=== PATIENT | male | born 1930 | race Caucasian/White ===

== ENCOUNTER 2018-01-15 06:06 | Inpatient (IN) | payer MEDICARE, OTHER ==
[~2018-01-15] VITALS: Ht 182.9 cm; Wt 71.2 kg
[~2018-01-15 06:06] MED LIST: CIPR500 PO; HYDACE5 PO; IRON150C PO; LEVFLO250 PO; OMEP20ER PO; Omeprazole20 M1 PO; Prilosec Otc20 MG PO; Pyridium200 MG PO; SINEMET 25-1001 EACH PO; TAMS.4ER PO; Ultram50 MG PO; Zofran Odt4 MG SL; [UNRECOGNIZED DRUG - OTHER] PO; [UNRECOGNIZED DRUG - REMARK]
[2018-01-15] MEDS ORDERED: METO25ER PO (06:36)
[2018-01-15] MEDS ORDERED: LOSA25 PO (06:37)
[2018-01-15 21:32] LABS: BASOPHILS ABSOLUTE AUTO 0.02 K/mm3 (0.00-0.23); BASOPHILS PERCENT AUTO 0 % (0-2); EOSINOPHILS PERCENT AUTO 0 % (0-6); Hematocrit 31.7 % (37.0-53.0); Hemoglobin 9.6 g/dL (13.5-17.5); IMMATURE GRAN ABSOLUTE AUTO 0.04 K/mm3 (0.00-0.10); IMMATURE GRAN PERCENT AUTO 0 % (0-1); LYMPHOCYTES ABSOLUTE AUTO 0.59 K/mm3 (0.84-5.20); LYMPHOCYTES PERCENT AUTO 5 % (21-46); MONOCYTES ABSOLUTE AUTO 0.78 K/mm3 (0.16-1.47); MONOCYTES PERCENT AUTO 7 % (4-13); Mean Corpuscular HGB 29.9 pg (26.0-34.0); Mean Corpuscular HGB Conc 30.3 g/dL (31.5-36.5); Mean Corpuscular Volume 99 fL (80-100); Mean Platelet Volume 9.5 fL (9.1-12.4); NEUTROPHILS PERCENT AUTO 88 % (41-73); Platelet Count 237 K/mm3 (150-400); RDW Coefficient Variation 14.6 % (11.7-14.2); RDW Standard Deviation 52.9 fL (35.1-46.3); Red Blood Cell Count 3.21 M/mm3 (4.30-5.90); White Blood Cell Count 11.83 K/mm3 (4.00-11.30)
[2018-01-16 04:32] LABS: Anion Gap 4 mmol/L (6-16); Blood Urea Nitrogen 27 mg/dL (8-24); Bun/Creatinine Ratio 25.7 (12.0-20.0); CO2, Blood 32 mmol/L (21-32); Calcium, Blood 7.6 mg/dL (8.5-10.1); Chloride, Blood 107 mmol/L (98-108); Creatinine, Blood 1.05 mg/dL (0.60-1.20); Glomerular Filtration Rate >60 (60-); Glucose, Blood 82 mg/dL (70-99); Magnesium, Blood 1.8 mg/dL (1.6-2.4); Potassium, Blood 4.9 mmol/L (3.5-5.5); Sodium, Blood 143 mmol/L (136-145)
[2018-01-16 07:15] LABS: BASOPHILS ABSOLUTE AUTO 0.05 K/mm3 (0.00-0.23); BASOPHILS PERCENT AUTO 1 % (0-2); EOSINOPHILS ABSOLUTE AUTO 0.05 K/mm3 (0.00-0.68); EOSINOPHILS PERCENT AUTO 1 % (0-6); Hemoglobin 8.7 g/dL (13.5-17.5); IMMATURE GRAN ABSOLUTE AUTO 0.03 K/mm3 (0.00-0.10); IMMATURE GRAN PERCENT AUTO 0 % (0-1); LYMPHOCYTES ABSOLUTE AUTO 0.95 K/mm3 (0.84-5.20); LYMPHOCYTES PERCENT AUTO 11 % (21-46); MONOCYTES ABSOLUTE AUTO 0.71 K/mm3 (0.16-1.47); MONOCYTES PERCENT AUTO 8 % (4-13); Mean Corpuscular HGB 29.8 pg (26.0-34.0); Mean Corpuscular Volume 99 fL (80-100); NEUTROPHILS ABSOLUTE AUTO 7.24 K/mm3 (1.96-9.15); NEUTROPHILS PERCENT AUTO 80 % (41-73); Platelet Count 222 K/mm3 (150-400); RDW Coefficient Variation 14.9 % (11.7-14.2); RDW Standard Deviation 54.2 fL (35.1-46.3); Red Blood Cell Count 2.92 M/mm3 (4.30-5.90); White Blood Cell Count 9.03 K/mm3 (4.00-11.30)
[2018-01-17 06:28] LABS: BASOPHILS ABSOLUTE AUTO 0.03 K/mm3 (0.00-0.23); BASOPHILS PERCENT AUTO 0 % (0-2); EOSINOPHILS ABSOLUTE AUTO 0.07 K/mm3 (0.00-0.68); EOSINOPHILS PERCENT AUTO 1 % (0-6); Hematocrit 28.5 % (37.0-53.0); Hemoglobin 8.6 g/dL (13.5-17.5); IMMATURE GRAN ABSOLUTE AUTO 0.04 K/mm3 (0.00-0.10); IMMATURE GRAN PERCENT AUTO 0 % (0-1); LYMPHOCYTES ABSOLUTE AUTO 0.45 K/mm3 (0.84-5.20); LYMPHOCYTES PERCENT AUTO 4 % (21-46); MONOCYTES ABSOLUTE AUTO 0.79 K/mm3 (0.16-1.47); MONOCYTES PERCENT AUTO 7 % (4-13); Mean Corpuscular HGB 29.7 pg (26.0-34.0); Mean Corpuscular HGB Conc 30.2 g/dL (31.5-36.5); Mean Corpuscular Volume 98 fL (80-100); Mean Platelet Volume 9.7 fL (9.1-12.4); NEUTROPHILS ABSOLUTE AUTO 9.65 K/mm3 (1.96-9.15); NEUTROPHILS PERCENT AUTO 87 % (41-73); Platelet Count 208 K/mm3 (150-400); RDW Coefficient Variation 14.8 % (11.7-14.2); RDW Standard Deviation 53.1 fL (35.1-46.3); White Blood Cell Count 11.03 K/mm3 (4.00-11.30)
[2018-01-17 06:52] LABS: Magnesium, Blood 1.9 mg/dL (1.6-2.4)
[2018-01-17 06:53] LABS: Anion Gap 5 mmol/L (6-16); Blood Urea Nitrogen 22 mg/dL (8-24); Bun/Creatinine Ratio 22.6 (12.0-20.0); CO2, Blood 31 mmol/L (21-32); Calcium, Blood 7.8 mg/dL (8.5-10.1); Chloride, Blood 103 mmol/L (98-108); Creatinine, Blood 0.97 mg/dL (0.60-1.20); Glomerular Filtration Rate >60 (60-); Glucose, Blood 101 mg/dL (70-99); Phosphorus, Blood 3.1 mg/dL (2.5-4.9); Potassium, Blood 4.3 mmol/L (3.5-5.5); Sodium, Blood 139 mmol/L (136-145)
[2018-01-18 05:50] LABS: BASOPHILS ABSOLUTE AUTO 0.02 K/mm3 (0.00-0.23); BASOPHILS PERCENT AUTO 0 % (0-2); EOSINOPHILS ABSOLUTE AUTO 0.04 K/mm3 (0.00-0.68); EOSINOPHILS PERCENT AUTO 0 % (0-6); Hematocrit 27.4 % (37.0-53.0); Hemoglobin 8.4 g/dL (13.5-17.5); IMMATURE GRAN ABSOLUTE AUTO 0.04 K/mm3 (0.00-0.10); IMMATURE GRAN PERCENT AUTO 0 % (0-1); LYMPHOCYTES PERCENT AUTO 4 % (21-46); MONOCYTES ABSOLUTE AUTO 0.75 K/mm3 (0.16-1.47); MONOCYTES PERCENT AUTO 8 % (4-13); Mean Corpuscular HGB 29.2 pg (26.0-34.0); Mean Corpuscular HGB Conc 30.7 g/dL (31.5-36.5); NEUTROPHILS ABSOLUTE AUTO 8.31 K/mm3 (1.96-9.15); NEUTROPHILS PERCENT AUTO 87 % (41-73); Platelet Count 222 K/mm3 (150-400); RDW Coefficient Variation 14.6 % (11.7-14.2); RDW Standard Deviation 50.5 fL (35.1-46.3); Red Blood Cell Count 2.88 M/mm3 (4.30-5.90); White Blood Cell Count 9.56 K/mm3 (4.00-11.30)
[2018-01-18 05:55] LABS: Mean Corpuscular Volume 95 fL (80-100)
[2018-01-18 06:08] LABS: Anion Gap 4 mmol/L (6-16); Blood Urea Nitrogen 16 mg/dL (8-24); Bun/Creatinine Ratio 17.1 (12.0-20.0); CO2, Blood 33 mmol/L (21-32); Calcium, Blood 7.9 mg/dL (8.5-10.1); Chloride, Blood 102 mmol/L (98-108); Creatinine, Blood 0.94 mg/dL (0.60-1.20); Glomerular Filtration Rate >60 (60-); Glucose, Blood 97 mg/dL (70-99); Magnesium, Blood 1.8 mg/dL (1.6-2.4); Phosphorus, Blood 2.9 mg/dL (2.5-4.9); Potassium, Blood 4.1 mmol/L (3.5-5.5); Sodium, Blood 139 mmol/L (136-145)
[2018-01-19 08:34] LABS: Anion Gap 6 mmol/L (6-16); Blood Urea Nitrogen 14 mg/dL (8-24); Bun/Creatinine Ratio 15.3 (12.0-20.0); CO2, Blood 33 mmol/L (21-32); Calcium, Blood 7.8 mg/dL (8.5-10.1); Chloride, Blood 103 mmol/L (98-108); Creatinine, Blood 0.92 mg/dL (0.60-1.20); Glomerular Filtration Rate >60 (60-); Glucose, Blood 100 mg/dL (70-99); Potassium, Blood 3.9 mmol/L (3.5-5.5); Sodium, Blood 142 mmol/L (136-145)
== END 2018-01-19 13:35 | disposition home health service (06) | DRG 178 ==
LOC: SURS 06:06 → PRE IP 07:30 → SURS 11:44
PROVIDERS: Surgery
PROC: 0DHA4UZ Insertion of Feeding Device into Jejunum, Percutaneous Endoscopic Approach (ICD-10-PCS; principal; 2018-01-15 07:30)
DX: J69.0 Pneumonitis due to inhalation of food and vomit (principal); E46 Unspecified protein-calorie malnutrition; I42.9 Cardiomyopathy, unspecified; I95.9 Hypotension, unspecified; Z85.01 Personal history of malignant neoplasm of esophagus; Z87.891 Personal history of nicotine dependence; Z85.46 Personal history of malignant neoplasm of prostate; Z68.21 Body mass index [BMI] 21.0-21.9, adult; I10 Essential (primary) hypertension; G20 Parkinson's disease
CPT/HCPCS: 36415; 80048; 83735; 84100; 85025; C1729; J0295; J1100; J2370; J2405; J2710; J3010; J7030; J7060; J7120

== ENCOUNTER 2018-04-05 15:37 | Emergency (ER) | payer MEDICARE, OTHER ==
[~2018-04-05] VITALS: Ht 188 cm; Wt 72.6 kg
[~2018-04-05 15:37] MED LIST changes: +LOSA25 PO; +METO25ER PO
[2018-04-05 17:25] LABS: BASOPHILS ABSOLUTE AUTO 0.07 K/mm3 (0.00-0.23); BASOPHILS PERCENT AUTO 1 % (0-2); EOSINOPHILS PERCENT AUTO 8 % (0-6); Hematocrit 40.9 % (37.0-53.0); Hemoglobin 12.6 g/dL (13.5-17.5); IMMATURE GRAN ABSOLUTE AUTO 0.02 K/mm3 (0.00-0.10); IMMATURE GRAN PERCENT AUTO 0 % (0-1); LYMPHOCYTES ABSOLUTE AUTO 0.91 K/mm3 (0.84-5.20); LYMPHOCYTES PERCENT AUTO 12 % (21-46); MONOCYTES ABSOLUTE AUTO 0.81 K/mm3 (0.16-1.47); MONOCYTES PERCENT AUTO 10 % (4-13); Mean Corpuscular HGB 30.2 pg (26.0-34.0); Mean Corpuscular HGB Conc 30.8 g/dL (31.5-36.5); Mean Corpuscular Volume 98 fL (80-100); Mean Platelet Volume 9.4 fL (9.1-12.4); NEUTROPHILS ABSOLUTE AUTO 5.41 K/mm3 (1.96-9.15); NEUTROPHILS PERCENT AUTO 69 % (41-73); Platelet Count 265 K/mm3 (150-400); RDW Coefficient Variation 13.8 % (11.7-14.2); RDW Standard Deviation 49.8 fL (35.1-46.3); Red Blood Cell Count 4.17 M/mm3 (4.30-5.90); White Blood Cell Count 7.82 K/mm3 (4.00-11.30)
[2018-04-05 17:52] LABS: Alanine Aminotransfer (ALT/SGP 21 U/L (12-78); Albumin/Globulin Ratio 0.6 (0.8-1.8); Alk Phos 124 U/L (50-136); Anion Gap 3 mmol/L (6-16); Aspartate Aminotrans (AST/SGOT 23 U/L (12-37); Bilirubin, Total 0.4 mg/dL (0.1-1.0); Blood Urea Nitrogen 36 mg/dL (8-24); Bun/Creatinine Ratio 45.6 (12.0-20.0); CO2, Blood 37 mmol/L (21-32); Calcium, Blood 8.9 mg/dL (8.5-10.1); Chloride, Blood 98 mmol/L (98-108); Creatinine, Blood 0.79 mg/dL (0.60-1.20); Globulin, Blood 4.9 g/dL (2.2-4.0); Glomerular Filtration Rate >60 (60-); Glucose, Blood 77 mg/dL (70-99); Sodium, Blood 138 mmol/L (136-145); Total Protein, Blood 7.9 g/dL (6.4-8.2)
[2018-04-05 17:54] LABS: Troponin I <0.015 ng/mL (0.000-0.040)
== END 2018-04-05 18:46 | disposition home or self-care (01) ==
LOC: ER 15:37
PROVIDERS: Physician Assistant
DX: R05 Cough (principal); G20 Parkinson's disease; Z79.899 Other long term (current) drug therapy; Z87.891 Personal history of nicotine dependence
CPT/HCPCS: 36415; 71046; 80053; 84484; 85025; 93005; 93010; 99283-25

== ENCOUNTER 2018-04-22 04:35 | Emergency (ER) | payer MEDICARE, OTHER ==
[~2018-04-22] VITALS: Ht 188 cm; Wt 72.6 kg
== END 2018-04-22 07:00 | disposition home or self-care (01) ==
LOC: ER 04:35
DX: Z43.4 Encounter for attention to other artificial openings of digestive tract (principal); G20 Parkinson's disease; C61 Malignant neoplasm of prostate
CPT/HCPCS: 43761; 49465; 99283-25; Q9963

== ENCOUNTER 2018-07-31 08:33 | Day surgery (SDC) | payer MEDICARE, OTHER ==
[~2018-07-31] VITALS: Ht 182.9 cm; Wt 76.4 kg
[~2018-07-31 08:33] MED LIST changes: +CYAN1000I IM; +ERYT1OIN BOTHEYES; +HYDCHL25 PO; +LANS15EC PO; +Norco 5-325 Ta1 EACH PO; +SINEMET 25-1001 EACH; -SINEMET 25-1001 EACH PO; +Zantac150 MG PO; +[UNRECOGNIZED DRUG - OTHER] PO
--- NOTE | 2018-07-31 10:21 | NUR ---
PT HERE FROM STUDENT COUNSELOR. PT A&OX3. SITE STABLE. PT AND FAMILY WELL EDUCATED ON SITE MANAGEMENT. IV DC'D WITH CANULA IN TACT AT 1020. PT ABLE TO DRESS SELF WITH LITTLE HELP. PT AMBULATED TO RESTROOM WITH STEADY GAIT. PT TO BE WHEELED OUT BY ESCORT.
--- NOTE | 2018-07-31 10:45 | NUR ---
PT DISCHARGED HOME VIA WHEELCHAIR. SON DRIVING.
== END 2018-07-31 10:20 | disposition home or self-care (01) ==
LOC: MHTC 08:33
DX: Z43.4 Encounter for attention to other artificial openings of digestive tract (principal); C15.9 Malignant neoplasm of esophagus, unspecified; Z87.442 Personal history of urinary calculi; Z87.891 Personal history of nicotine dependence; Z79.899 Other long term (current) drug therapy
CPT/HCPCS: 49451; C1729; C1769; J7030; Q9967

== ENCOUNTER 2018-12-31 06:37 | Inpatient (IN) | payer MEDICARE, OTHER ==
[~2018-12-31] VITALS: Ht 188 cm; Wt 79.4 kg
[2018-12-31 08:47] LABS: Source, Urine Catheter
[2018-12-31 08:54] LABS: BASOPHILS ABSOLUTE AUTO 0.03 K/mm3 (0.00-0.23); BASOPHILS PERCENT AUTO 0 % (0-2); EOSINOPHILS ABSOLUTE AUTO 0.02 K/mm3 (0.00-0.68); EOSINOPHILS PERCENT AUTO 0 % (0-6); Hematocrit 41.5 % (37.0-53.0); Hemoglobin 13.1 g/dL (13.5-17.5); IMMATURE GRAN ABSOLUTE AUTO 0.06 K/mm3 (0.00-0.10); IMMATURE GRAN PERCENT AUTO 0 % (0-1); LYMPHOCYTES PERCENT AUTO 2 % (21-46); MONOCYTES ABSOLUTE AUTO 0.69 K/mm3 (0.16-1.47); MONOCYTES PERCENT AUTO 5 % (4-13); Mean Corpuscular HGB 31.1 pg (26.0-34.0); Mean Corpuscular HGB Conc 31.6 g/dL (31.5-36.5); Mean Corpuscular Volume 99 fL (80-100); Mean Platelet Volume 9.3 fL (9.1-12.4); NEUTROPHILS ABSOLUTE AUTO 13.02 K/mm3 (1.96-9.15); NEUTROPHILS PERCENT AUTO 92 % (41-73); Platelet Count 293 K/mm3 (150-400); RDW Coefficient Variation 14.7 % (11.7-14.2); RDW Standard Deviation 53.7 fL (35.1-46.3); Red Blood Cell Count 4.21 M/mm3 (4.30-5.90); White Blood Cell Count 14.12 K/mm3 (4.00-11.30)
[2018-12-31 08:59] LABS: Bilirubin, Urine Neg (Neg); Blood, Urine Neg (Neg); Glucose Qualitative, Urine Neg (Neg); Ketones, Urine Neg (Neg); Leukocyte Esterase, Urine Neg (Neg); Nitrite, Urine Neg (Neg); Protein, Urine Neg (Neg); Specific Gravity, Urine 1.005 (1.003-1.022); Urobilinogen, Urine NORM (Normal)
[2018-12-31 09:12] LABS: International Normalized Ratio 1.01; Prothrombin Time Results 10.7 Sec (9.7-11.5)
[2018-12-31 09:13] LABS: Bun/Creatinine Ratio 33.8 (12.0-20.0); Calcium, Blood 9.3 mg/dL (8.5-10.1); Creatinine, Blood 1.42 mg/dL (0.60-1.20); Potassium, Blood 3.9 mmol/L (3.5-5.5)
[2018-12-31 09:14] LABS: Appearance, Urine Clear (Clear); Color, Urine Yellow (P-Yellow)
--- NOTE | 2018-12-31 10:33 | NUR ---
REPORT RECEIVED BY SOUND ENGINEERRONDA ESPITIA AT 1035
--- NOTE | 2018-12-31 16:12 | NUR ---
ADMISSION: PT TO UNIT AT ABOUT 11:00. UPON ASSESSMENT PT IS PAINFUL WITH TURNING AND MOVEMENT BUT NO VISABLE DISTRESS. VSS. A/O, PT SPEACH HARD TO UNDERSTAND AT BASELINE. PT REPORT PAIN IN L HIP, PLAN TO MEDICATE. PT AND SON IN ROOM, WILL CTM AND POSITION FOR COMFORT.
--- NOTE | 2018-12-31 18:27 | NUR ---
SUMMARY: NO ACUTE CHANGE SINCE ADMISSION. PT MEDICATED PER EMAR FOR PAIN. SAT AT EDGE OF BED WITH PT/OT. REPORTS LESS PAIN WHEN SITTING UP. SMALL AMOUNT SWELLING AT R HIP, CSM INTACT. PT GIVEN PILLS WITH APPLESAUCE. CALL MADE TO DR. HUERTA FOR CONSULT, MD HAS YET TO SEE PT. J-TUBE IS CLAMPED AND NOT BEING USED CURRENTLY. DIETARY SAW PT. WILL CTM AND REPORT TO NOC RN
[2019-01-01 05:02] LABS: BASOPHILS ABSOLUTE AUTO 0.01 K/mm3 (0.00-0.23); BASOPHILS PERCENT AUTO 0 % (0-2); EOSINOPHILS ABSOLUTE AUTO 0.01 K/mm3 (0.00-0.68); EOSINOPHILS PERCENT AUTO 0 % (0-6); Hematocrit 37.3 % (37.0-53.0); Hemoglobin 11.3 g/dL (13.5-17.5); IMMATURE GRAN ABSOLUTE AUTO 0.04 K/mm3 (0.00-0.10); IMMATURE GRAN PERCENT AUTO 0 % (0-1); LYMPHOCYTES ABSOLUTE AUTO 0.46 K/mm3 (0.84-5.20); LYMPHOCYTES PERCENT AUTO 4 % (21-46); MONOCYTES ABSOLUTE AUTO 0.91 K/mm3 (0.16-1.47); MONOCYTES PERCENT AUTO 8 % (4-13); Mean Corpuscular HGB 30.5 pg (26.0-34.0); Mean Corpuscular HGB Conc 30.3 g/dL (31.5-36.5); Mean Corpuscular Volume 101 fL (80-100); Mean Platelet Volume 9.7 fL (9.1-12.4); NEUTROPHILS PERCENT AUTO 88 % (41-73); Platelet Count 259 K/mm3 (150-400); RDW Coefficient Variation 14.8 % (11.7-14.2); RDW Standard Deviation 54.8 fL (35.1-46.3); White Blood Cell Count 12.03 K/mm3 (4.00-11.30)
[2019-01-01 05:23] LABS: Bun/Creatinine Ratio 34.3 (12.0-20.0); Calcium, Blood 8.8 mg/dL (8.5-10.1); Creatinine, Blood 1.37 mg/dL (0.60-1.20); Magnesium, Blood 2.3 mg/dL (1.6-2.4); Phosphorus, Blood 3.6 mg/dL (2.5-4.9); Potassium, Blood 3.9 mmol/L (3.5-5.5)
--- NOTE | 2019-01-01 05:36 | NUR ---
SHIFT SUMMARY PT AAOX4 AT BEGINNING OF SHIFT. SOME CONFUSION WITH AWAKENING BUT REDIRECTS. C/O PAIN X1 DURING SHIFT MEDICATED PER EMAR. PT RESTING IN BED. NPO DURING SHIFT EXCEPT FOR MEDICATIONS.
--- NOTE | 2019-01-01 12:39 | NUR ---
PT HAS YET TO BE SEEN BY DR. HUERTA. CALL MADE TO MD'S CELL AT THIS TIME, MESSAGE LEFT
--- NOTE | 2019-01-01 14:46 | NUR ---
SPOKE WITH DR. HUERTA AT 0240MD REPORTS WILL SEE PT TODAY ALTHOUGH UNABLE TO REPLACE J-TUBE TODAY, PLAN TO REPLACE TOMORROW. WILL MAKE DR. ANDRE, FAMILY AND DIETITION AWARE.
--- NOTE | 2019-01-01 14:54 | NUR ---
DIETITIONLAURA MADE AWARE OF J-TUBE PLAN
--- NOTE | 2019-01-01 15:15 | NUR ---
ISTRATE NOTIFIED OF DR. HUERTA'S PLAN FOR J-TUBE. HE WOULD LIKE DIETARY CONSULTED FOR POSSIBLE LIPIDS/CLINIMIX. SPOKE WITH LAURA FROM DIETARY, SHE DOES NOT THINK IT NECESSARY AT THIS TIME TO START IV NUTRITION SINCE PT SHOULD HAVE J-TUBE REPLACED TOMORROW. DIETARY WILL CONTINUE TO FOLLOW PT STATUS.
--- NOTE | 2019-01-01 18:39 | NUR ---
SUMMARY: PT IS NON-SURGICAL. ADMITTED FOR L HIP FX. NO ACUTE CHANGE TODAY, SEE PREVIOUS NOTES. VSS, A/O. PT ABLE TO WORK WITH PT/OT, SEE ASSESSMENT NOTES. GIVEN PERCOCET AND TYLENOL FOR PAIN. MEDS GIVEN WHOLE IN APPLESAUCE. PT INSTRUCTED ON I.S. USE, DEEP BREATHING ENCOURAGED. ESTRELLA CATH DC'D AND CONDOM CATH PLACED, PT TOLERATING. FAMILY IS AWARE OF DR. HUERTA'S PLAN FOR J-TUBE. NO ACUTE SAFETY CONCERNS AT THIS TIME. WILL MONITOR AND REPORT TO NOC RN.
--- NOTE | 2019-01-01 22:12 | NUR ---
2212: PT'S GRANDSON LEAVES FACILITY FOR NOC. PT HAS BECOME INCREASINGLY CONFUSED WITH VISUAL HALLUCINATIONS SINCE PRN PERCOCET; BUT STATES PAIN HAS IMPROVED TO TOLERABLE LEVEL. TAKES ALL MEDS WHOLE IN APPLESAUCE AND FOLLOWS CHIN TUCK SWALLOW PRECAUTIONS WITH HOB ELEVATED WITHOUT PROMPTING; NO COUGHING NOTED AFTERWARDS. PT HAS CALLED SON AND AWAITS ARRIVAL FOR REASSURANCE.
--- NOTE | 2019-01-02 01:12 | NUR ---
0112: PT'S SON AND DAUGHTER IN LAW ARRIVED EARLIER AND HAVE HELPED TO REASSURE PT AND COMFORT WITH CONFUSION SUSPECTED TO BE R/T NARCOTICS. PT REMAINS COOPERATIVE WITH CARE AND ABLE TO VERBALIZE NEED. MAINTAIN NPO STATUS EXCEPT MEDS IN APPLESAUCE.
[2019-01-02 04:33] LABS: BASOPHILS ABSOLUTE AUTO 0.01 K/mm3 (0.00-0.23); BASOPHILS PERCENT AUTO 0 % (0-2); EOSINOPHILS PERCENT AUTO 0 % (0-6); Hematocrit 36.4 % (37.0-53.0); IMMATURE GRAN ABSOLUTE AUTO 0.08 K/mm3 (0.00-0.10); IMMATURE GRAN PERCENT AUTO 1 % (0-1); LYMPHOCYTES ABSOLUTE AUTO 0.36 K/mm3 (0.84-5.20); LYMPHOCYTES PERCENT AUTO 3 % (21-46); MONOCYTES ABSOLUTE AUTO 1.05 K/mm3 (0.16-1.47); MONOCYTES PERCENT AUTO 8 % (4-13); Mean Corpuscular HGB 30.9 pg (26.0-34.0); Mean Corpuscular HGB Conc 30.2 g/dL (31.5-36.5); Mean Corpuscular Volume 102 fL (80-100); Mean Platelet Volume 9.8 fL (9.1-12.4); NEUTROPHILS ABSOLUTE AUTO 12.29 K/mm3 (1.96-9.15); NEUTROPHILS PERCENT AUTO 89 % (41-73); Platelet Count 243 K/mm3 (150-400); RDW Standard Deviation 57.1 fL (35.1-46.3); Red Blood Cell Count 3.56 M/mm3 (4.30-5.90); White Blood Cell Count 13.79 K/mm3 (4.00-11.30)
[2019-01-02 04:47] LABS: Anion Gap 3 mmol/L (6-16); Blood Urea Nitrogen 35 mg/dL (8-24); Bun/Creatinine Ratio 28.9 (12.0-20.0); CO2, Blood 35 mmol/L (21-32); Calcium, Blood 8.5 mg/dL (8.5-10.1); Chloride, Blood 106 mmol/L (98-108); Creatinine, Blood 1.21 mg/dL (0.60-1.20); Glomerular Filtration Rate >60 (60-); Glucose, Blood 98 mg/dL (70-99); Magnesium, Blood 2.2 mg/dL (1.6-2.4); Phosphorus, Blood 1.8 mg/dL (2.5-4.9); Potassium, Blood 3.7 mmol/L (3.5-5.5); Sodium, Blood 144 mmol/L (136-145)
--- NOTE | 2019-01-02 11:14 | NUR ---
patient pulling at bedding, asking where he is and states people are staring at him. patient re oriented to surroundings. bed alarm in place, patient calmed and closed eyes.
--- NOTE | 2019-01-02 12:58 | NUR ---
ASSUMED CARE ASSUMED CARE FROM RONDA QUINTANA AT THIS TIME. PT UP IN CHAIR WITH AT BEDSIDE AND CALL LIGHT WITHIN REACH.
--- NOTE | 2019-01-02 14:50 | NUR ---
PT TO PROCEDURE AT THIS TIME.
--- NOTE | 2019-01-02 16:54 | NUR ---
TUBE FEEDING DR. HUERTA NOTIFIED, ORDERS TO RESTART TUBE FEEDING OBTAINED. TUBE FEEDING STARTED AT 1640 TODAY. TUBE SITE C/D/I AND FLUSHES EASILY. DRESSING CHANGED TODAY. WILL CONT. TO MONITOR
--- NOTE | 2019-01-02 18:03 | NUR ---
SHIFT SUMMARY PT CONFUSED INTERMITTENTLY TODAY. FAMILY AND PREVIOUS RN REPORT EPISODES OF HALLUCINATIONS. CURRENTLY ORIENTATED TO SELF, SITUATION, LOCATION, AND FAMILY. J TUBE REPLACED THIS AFTERNOON AND TUBE FEEDING RESTARTED PER ORDERS. DRESSING C/D/I. PT DENIES PAIN. USES URINAL APPPROPRIATELY. FAMILY AT BEDSIDE T/O SHIFT AND ABLE TO ASSIST WITH COMMUNICATING NEEDS. WILL CONTINUE TO MONITOR AND GIVE REPORT TO ONCOMING RN.
[2019-01-03 04:45] LABS: BASOPHILS ABSOLUTE AUTO 0.02 K/mm3 (0.00-0.23); BASOPHILS PERCENT AUTO 0 % (0-2); EOSINOPHILS ABSOLUTE AUTO 0.01 K/mm3 (0.00-0.68); EOSINOPHILS PERCENT AUTO 0 % (0-6); Hematocrit 34.9 % (37.0-53.0); Hemoglobin 10.6 g/dL (13.5-17.5); IMMATURE GRAN ABSOLUTE AUTO 0.09 K/mm3 (0.00-0.10); IMMATURE GRAN PERCENT AUTO 1 % (0-1); LYMPHOCYTES ABSOLUTE AUTO 0.46 K/mm3 (0.84-5.20); LYMPHOCYTES PERCENT AUTO 4 % (21-46); MONOCYTES PERCENT AUTO 8 % (4-13); Mean Corpuscular HGB 30.7 pg (26.0-34.0); Mean Corpuscular HGB Conc 30.4 g/dL (31.5-36.5); Mean Corpuscular Volume 101 fL (80-100); NEUTROPHILS PERCENT AUTO 87 % (41-73); Platelet Count 233 K/mm3 (150-400); RDW Coefficient Variation 15.3 % (11.7-14.2); RDW Standard Deviation 57.3 fL (35.1-46.3); Red Blood Cell Count 3.45 M/mm3 (4.30-5.90); White Blood Cell Count 12.48 K/mm3 (4.00-11.30)
[2019-01-03 05:10] LABS: Alanine Aminotransfer (ALT/SGP 15 U/L (12-78); Albumin, Blood 2.4 g/dL (3.4-5.0); Albumin/Globulin Ratio 0.6 (0.8-1.8); Alk Phos 117 U/L (50-136); Anion Gap 5 mmol/L (6-16); Aspartate Aminotrans (AST/SGOT 35 U/L (12-37); Bilirubin, Total 0.8 mg/dL (0.1-1.0); Blood Urea Nitrogen 31 mg/dL (8-24); Bun/Creatinine Ratio 26.1 (12.0-20.0); CO2, Blood 32 mmol/L (21-32); Calcium, Blood 8.7 mg/dL (8.5-10.1); Chloride, Blood 112 mmol/L (98-108); Creatinine, Blood 1.19 mg/dL (0.60-1.20); Globulin, Blood 3.8 g/dL (2.2-4.0); Glomerular Filtration Rate >60 (60-); Glucose, Blood 105 mg/dL (70-99); Magnesium, Blood 2.1 mg/dL (1.6-2.4); Phosphorus, Blood 1.4 mg/dL (2.5-4.9); Potassium, Blood 4.1 mmol/L (3.5-5.5); Sodium, Blood 149 mmol/L (136-145); Total Protein, Blood 6.2 g/dL (6.4-8.2)
--- NOTE | 2019-01-03 07:10 | NUR ---
SHIFT SUMMARY: JAMIE IS POD1 FOR J TUBE REPLACEMENT. HE HAS ADVANCED PARKINSON'S DISEASE. HIS SPEECH IS GARBLED, BUT HE IS ABLE TO MAKE SOME NEEDS KNOWN. HE BECOMES AGITATED WHEN HE NEEDS TO URINATE. FEEDING RUNNING AT 25 ML/HR. D5 INFUSING. HE REPORTS BEING HUNGRY. HIS GRANDSON, WHO IS ALSO HIS CAREGIVER, WAS AT BEDSIDE MOST OF THE NIGHT. HE DENIES PAIN WHEN QUERIED. SCDs IN PLACE. HE IS ABLE TO USE THE URINAL WITH SOME ASSISTANCE. J TUBE FLUSHES EASILY.
--- NOTE | 2019-01-03 11:00 | NUR ---
CALL TO DR JORDAN RE: VS, IVF ORDER.
[2019-01-03 15:40] LABS: Anion Gap 4 mmol/L (6-16); Blood Urea Nitrogen 31 mg/dL (8-24); Bun/Creatinine Ratio 27.4 (12.0-20.0); CO2, Blood 31 mmol/L (21-32); Calcium, Blood 8.3 mg/dL (8.5-10.1); Chloride, Blood 115 mmol/L (98-108); Creatinine, Blood 1.13 mg/dL (0.60-1.20); Glomerular Filtration Rate >60 (60-); Glucose, Blood 112 mg/dL (70-99); Phosphorus, Blood 1.8 mg/dL (2.5-4.9); Potassium, Blood 4.1 mmol/L (3.5-5.5); Sodium, Blood 150 mmol/L (136-145)
[2019-01-03] MEDS ORDERED: ROPI.25 PT (16:10)
--- NOTE | 2019-01-03 18:12 | NUR ---
SHIFT SUMMARY PATIENT TOLERATING J TUBE FEEDING, NOW AT GOAL RATE OF 70 ML/HR. NO NAUSEA. 1 LOOSE LARGE STOOL THIS AM. IVF INFUSING PER ORDER. WILL PASS ON TO NOC RN TO INFORM DR JORDAN OF 2000 LAB RESULTS. PATIENT HAS DENIED PAIN T/O SHIFT. UP TO CHAIR WITH PT. FAMILY MEMBER IN TO SEE THIS AFTERNOON, STATES PATIENT IS NOT IN USUAL STATE OF MIND. DISCUSSED PATIENT'S HOME DOSE OF REQUIP, CALLED DR JORDAN AND OBTAINED ORDER TO INCREAESE MED TO USUAL HOME DOSE AND RECOVERY ASSISTANT. NO ACUTE CHANGES OR C/O AT THIS TIME.
[2019-01-03 21:05] LABS: Anion Gap 5 mmol/L (6-16); Blood Urea Nitrogen 32 mg/dL (8-24); Bun/Creatinine Ratio 30.2 (12.0-20.0); CO2, Blood 30 mmol/L (21-32); Calcium, Blood 8.2 mg/dL (8.5-10.1); Chloride, Blood 112 mmol/L (98-108); Creatinine, Blood 1.06 mg/dL (0.60-1.20); Glomerular Filtration Rate >60 (60-); Glucose, Blood 104 mg/dL (70-99); Potassium, Blood 4.2 mmol/L (3.5-5.5); Sodium, Blood 147 mmol/L (136-145)
[2019-01-04 04:27] LABS: Anion Gap 3 mmol/L (6-16); Blood Urea Nitrogen 33 mg/dL (8-24); Bun/Creatinine Ratio 31.7 (12.0-20.0); CO2, Blood 30 mmol/L (21-32); Calcium, Blood 8.1 mg/dL (8.5-10.1); Chloride, Blood 114 mmol/L (98-108); Creatinine, Blood 1.04 mg/dL (0.60-1.20); Glomerular Filtration Rate >60 (60-); Glucose, Blood 117 mg/dL (70-99); Phosphorus, Blood 2.5 mg/dL (2.5-4.9); Potassium, Blood 4.1 mmol/L (3.5-5.5); Sodium, Blood 147 mmol/L (136-145)
--- NOTE | 2019-01-04 07:37 | NUR ---
Patient up in the recliner until approx 2330. patient then helped to bed with one person. He appreared to be asleep for at least 5 hours last night at 0500 this morning it was noted that his dressing covering the j tube was saturated with green fluid. dressing removed and skin cleansed and 2 drain dressings placed. skin at the j tube site is red and inflammed.
--- NOTE | 2019-01-04 11:22 | NUR ---
REPORT PHONED TO DENIA AT [facility]
--- NOTE | 2019-01-04 11:41 | NUR ---
1140 DISCHARGE TRANPORT HERE FROM [facility], PATIENT TRANSFERREED TO [facility]. PATIENTS AND GRANDSON, FREDA, PRESENT AT BEDSIDE
== END 2019-01-04 11:40 | disposition home or self-care (01) | DRG 536 ==
LOC: ER 06:37 → SURS 10:39
PROVIDERS: Emergency Medicine; Hospitalist; Nurse Practitioner Acute Care; ADMIT Family Medicine
PROC: 0D2DXUZ Change Feeding Device in Lower Intestinal Tract, External Approach (ICD-10-PCS; principal; 2019-01-02)
DX: S72.22XA Displaced subtrochanteric fracture of left femur, initial encounter for closed fracture (principal); M97.02XA Periprosthetic fracture around internal prosthetic left hip joint, initial encounter; J96.11 Chronic respiratory failure with hypoxia; E87.1 Hypo-osmolality and hyponatremia; N17.9 Acute kidney failure, unspecified; K94.23 Gastrostomy malfunction; F05 Delirium due to known physiological condition; Z66 Do not resuscitate; G20 Parkinson's disease; Z85.028 Personal history of other malignant neoplasm of stomach; F02.80 Dementia in other diseases classified elsewhere, unspecified severity, without behavioral disturbance, psychotic disturbance, mood disturbance, and anxiety; Z99.81 Dependence on supplemental oxygen; Z85.46 Personal history of malignant neoplasm of prostate; N18.3 Chronic kidney disease, stage 3 (moderate); E86.9 Volume depletion, unspecified; E86.0 Dehydration; K21.9 Gastro-esophageal reflux disease without esophagitis; W01.190A Fall on same level from slipping, tripping and stumbling with subsequent striking against furniture, initial encounter
CPT/HCPCS: 36415; 49451; 51702; 71045; 73502; 80048; 80053; 81003; 82947; 83735; 84100; 85025; 85610; 85730; 93005; 93010; 96374-59; 96375-59; 96376-59; 97110; 97162; 97166; 97530; 99285-25; A9270; C1729; C1769; C9113; J1644; J2405; J3010; J7030; J7042; J7512; Q9967

== ENCOUNTER 2020-02-25 14:15 | Emergency (ER) | payer MEDICARE, OTHER ==
[~2020-02-25] VITALS: Ht 188 cm; Wt 74.8 kg
[~2020-02-25 14:15] MED LIST changes: +ROPI.25 PT
== END 2020-02-25 14:37 | disposition left against medical advice (07) ==
LOC: ER 14:15
DX: I95.9 Hypotension, unspecified (principal); R35.0 Frequency of micturition; Z53.21 Procedure and treatment not carried out due to patient leaving prior to being seen by health care provider; R10.9 Unspecified abdominal pain
CPT/HCPCS: 99283

== ENCOUNTER 2020-05-01 17:07 | Emergency (ER) | payer MEDICARE, OTHER ==
[~2020-05-01] VITALS: Ht 188 cm; Wt 72.6 kg
[2020-05-01 20:50] LABS: Source, Urine Clean Catch
[2020-05-01 20:53] LABS: Appearance, Urine Clear (Clear); Bilirubin, Urine Neg (Neg); Blood, Urine Neg (Neg); Color, Urine Yellow (P-Yellow); Glucose Qualitative, Urine Neg (Neg); Ketones, Urine 1+ (Neg); Leukocyte Esterase, Urine 1+ (Neg); Nitrite, Urine Neg (Neg); Protein, Urine 1+ (Neg); Urobilinogen, Urine NORM (Normal)
[2020-05-01 21:15] LABS: Amorphous Light (0-Heavy); Bacteria Few /hpf; Mucus Light (0-Heavy); Red Blood Cells, Urine Not Seen /hpf (0-2); Squamous Epithelial Cells Not Seen /hpf (Few)
== END 2020-05-01 21:12 | disposition left against medical advice (07) ==
LOC: ER 17:07
PROVIDERS: Emergency Medicine
DX: N50.819 Testicular pain, unspecified (principal); Z79.899 Other long term (current) drug therapy
CPT/HCPCS: 36415; 76870; 81001; 87086; 99284-25